=== PATIENT | female | born 1970 | race Caucasian/White ===

== ENCOUNTER → 2018-02-23 | Outpatient (CLI) | payer OTHER ==
[~2018-02-23] MED LIST: ASPI325 PO; BUPR100; BUPR150ER PO; OXYACE5T PO; TRIA80TC TOP
[2018-02-23 18:09] LABS: BASOPHILS ABSOLUTE AUTO 0.14 K/mm3 (0.00-0.23); BASOPHILS PERCENT AUTO 2 % (0-2); EOSINOPHILS ABSOLUTE AUTO 0.58 K/mm3 (0.00-0.68); EOSINOPHILS PERCENT AUTO 7 % (0-6); Hematocrit 35.7 % (33.0-51.0); Hemoglobin 11.6 g/dL (11.5-16.0); IMMATURE GRAN ABSOLUTE AUTO 0.02 K/mm3 (0.00-0.10); IMMATURE GRAN PERCENT AUTO 0 % (0-1); LYMPHOCYTES ABSOLUTE AUTO 2.24 K/mm3 (0.84-5.20); LYMPHOCYTES PERCENT AUTO 26 % (21-46); MONOCYTES ABSOLUTE AUTO 1.01 K/mm3 (0.16-1.47); MONOCYTES PERCENT AUTO 12 % (4-13); Mean Corpuscular HGB 30.1 pg (26.0-34.0); Mean Corpuscular HGB Conc 32.5 g/dL (31.5-36.5); Mean Corpuscular Volume 93 fL (80-100); NEUTROPHILS ABSOLUTE AUTO 4.51 K/mm3 (1.96-9.15); NEUTROPHILS PERCENT AUTO 53 % (41-73); Platelet Count 424 K/mm3 (150-400); RDW Standard Deviation 47.9 fL (35.1-46.3); Red Blood Cell Count 3.85 M/mm3 (3.80-5.20)
[2018-02-23 19:03] LABS: Alanine Aminotransfer (ALT/SGP 18 U/L (12-78); Albumin, Blood 3.5 g/dL (3.4-5.0); Albumin/Globulin Ratio 1.2 (0.8-1.8); Alk Phos 59 U/L (50-136); Anion Gap 7 mmol/L (6-16); Aspartate Aminotrans (AST/SGOT 17 U/L (12-37); Bilirubin, Total 0.2 mg/dL (0.1-1.0); Blood Urea Nitrogen 15 mg/dL (8-24); Bun/Creatinine Ratio 21.2 (12.0-20.0); CO2, Blood 27 mmol/L (21-32); Calcium, Blood 8.2 mg/dL (8.5-10.1); Chloride, Blood 105 mmol/L (98-108); Cholesterol 175 mg/dL (50-200); Creatinine, Blood 0.71 mg/dL (0.40-1.00); Free Thyroxine 0.96 ng/dL (0.70-1.60); Globulin, Blood 2.9 g/dL (2.2-4.0); Glomerular Filtration Rate >60 (60-); Glucose, Blood 86 mg/dL (70-99); HDL Cholesterol 58 mg/dL (>39); LDL/HDL RATIO 1.7; Low Density Lipoprotein Chol 98 mg/dL (0-110); Potassium, Blood 4.3 mmol/L (3.5-5.5); Sodium, Blood 139 mmol/L (136-145); Total Protein, Blood 6.4 g/dL (6.4-8.2); Triglycerides 96 mg/dL (30-160); Very Low Density Lipoprot Chol 19 mg/dL (6-32)
== END ==
LOC: LAB 11:07 → LAB SHORT 11:07
PROVIDERS: Nurse Practitioner Adult Health
DX: F32.9 Major depressive disorder, single episode, unspecified (principal); N92.6 Irregular menstruation, unspecified; N92.0 Excessive and frequent menstruation with regular cycle; Q89.01 Asplenia (congenital); F17.200 Nicotine dependence, unspecified, uncomplicated
CPT/HCPCS: 80053; 80061; 83001; 84439; 84443; 85025

== ENCOUNTER → 2020-03-08 | Outpatient (CLI) | payer OTHER ==
[2020-03-12 08:08] LABS: COTININE Negative ng/mL (Cutoff=300)
== END | disposition home or self-care (01) ==
LOC: OLS 17:07 → LAB SHORT 17:07
PROVIDERS: Orthopaedic Surgery
DX: Z01.812 Encounter for preprocedural laboratory examination (principal); M16.12 Unilateral primary osteoarthritis, left hip

== ENCOUNTER 2020-04-03 07:12 | Day surgery (SDC) | payer OTHER ==
[~2020-04-03] VITALS: Ht 167.6 cm; Wt 75.5 kg
[~2020-04-03 07:12] MED LIST changes: +Norco 5-325 Ta1 EACH PO; +TRIA15CR3 TOP
--- NOTE | 2020-04-03 11:34 | NUR ---
Surgical site prepped with 2% Chlorhexidine cloth wipe. History, Chart, Medications and Allergies reviewed before start of procedure.Lungs clear T/O to Auscultation. Patient confirms NPO status and agrees with scheduled surgery. Pre-Op teaching done. Pt verbalizes understanding. Patient reports completing Chlorhexadine shower X2 prior to admission to hospital.Patient States Post-Procedure ride home has been arranged.
--- NOTE | 2020-04-03 16:47 | NUR ---
SHIFT SUMMARY A/O X4, VSS. S/P L JENY, TOLERATING PO, VOIDING WELL, AMBULATES TO BATHROOM W/ FWW&[id number],1 PERSON STANDBY ASSIST. TCDB, IS EDU&ENC. UP TO CHAIR, POLAR PACK, SCDS, TEDS IN PLACE. PAIN MANAGED WITH 5MG OXY, TORADOL, TYLENOL PER EMAR. CALL LIGHT IN REACH. WILL REPORT TO ONCOMING NOC RN.
[2020-04-04 04:47] LABS: BASOPHILS ABSOLUTE AUTO 0.05 K/mm3 (0.00-0.23); BASOPHILS PERCENT AUTO 0 % (0-2); EOSINOPHILS ABSOLUTE AUTO 0.07 K/mm3 (0.00-0.68); EOSINOPHILS PERCENT AUTO 1 % (0-6); Hematocrit 32.2 % (33.0-51.0); Hemoglobin 10.3 g/dL (11.5-16.0); IMMATURE GRAN ABSOLUTE AUTO 0.05 K/mm3 (0.00-0.10); IMMATURE GRAN PERCENT AUTO 0 % (0-1); LYMPHOCYTES ABSOLUTE AUTO 2.34 K/mm3 (0.84-5.20); LYMPHOCYTES PERCENT AUTO 16 % (21-46); MONOCYTES PERCENT AUTO 12 % (4-13); Mean Corpuscular HGB 29.9 pg (26.0-34.0); Mean Corpuscular Volume 94 fL (80-100); Mean Platelet Volume 9.9 fL (9.1-12.4); NEUTROPHILS ABSOLUTE AUTO 10.39 K/mm3 (1.96-9.15); NEUTROPHILS PERCENT AUTO 71 % (41-73); Platelet Count 451 K/mm3 (150-400); RDW Coefficient Variation 12.6 % (11.7-14.2); RDW Standard Deviation 43.2 fL (35.1-46.3); Red Blood Cell Count 3.44 M/mm3 (3.80-5.20)
[2020-04-04 05:06] LABS: Anion Gap 2 mmol/L (6-16); Blood Urea Nitrogen 14 mg/dL (8-24); Bun/Creatinine Ratio 21.6 (12.0-20.0); CO2, Blood 31 mmol/L (21-32); Calcium, Blood 8.1 mg/dL (8.5-10.1); Chloride, Blood 106 mmol/L (98-108); Creatinine, Blood 0.65 mg/dL (0.40-1.00); Glomerular Filtration Rate >60 (60-); Glucose, Blood 107 mg/dL (70-99); Potassium, Blood 3.5 mmol/L (3.5-5.5); Sodium, Blood 139 mmol/L (136-145)
--- NOTE | 2020-04-04 05:43 | NUR ---
SHIFT SUMMARY: PATRICIA IS POD1 FOR A L TKA. SHE IS TOLERATING PO INTAKE WELL. SHE DID HAVE AN EPISODE OF NAUSEA YESTERDAY WHICH SHE ATTRIBUTES TO TAKING THE OXYCODONE ON AN EMPTY STOMACH. SHE TOLERATED A DOSE LAST NIGHT WITH A SNACK WITHOUT NAUSEA. HER PAIN DID INCREASE SIGNIFICANTLY FOR A SHORT TIME DURING THE NIGHT. SHE REPORTS THAT 1 MG OF DILAUDID HAS BEEN EFFECTIVE. SHE IS AMBULATING WITHOUT DIFFICULTY, ONE PERSON STANDBY ASSIST. VSS, HER BP IS ON THE LOW SIDE BUT SHE DENIES ANY DIZZINESS OR LIGHTHEADEDNESS. IV TO R AC PATENT. SHE IS URINATING WITHOUT DIFFICULTY. SHE IS ABLE TO MAKE HER NEEDS KNOWN. SHE IS LYING IN BED WITH HER CALL LIGHT IN REACH. WILL REPORT TO DAY SHIFT RN.
[2020-04-04] MEDS ORDERED: XARELTO20 MG PO (09:48)
[2020-04-04] MEDS ORDERED: Percocet 5-3251 EACH PO (09:48)
--- NOTE | 2020-04-04 11:29 | NUR ---
DISCHARGED PT DC'D. DC'D IV, CATHETER INTACT. REVIEWED DC INSTRUCTIONS W/PT; VERBALIZED UNDERSTANDING. LEFT UNIT IN WC W/POSSESSIONS, DC PAPERWORK AND POLAR PACK IN HAND TO RIDE AWAITING OUTSIDE.
== END 2020-04-04 11:30 | disposition home or self-care (01) ==
LOC: ORSCMMR 07:12 → ORD 08:30 → SURS 11:16 → ORSCMMR 04-04 11:30
PROVIDERS: Orthopaedic Surgery
PROC: 0SRB0JA Replacement of Left Hip Joint with Synthetic Substitute, Uncemented, Open Approach (ICD-10-PCS; principal; 2020-04-03 08:30)
PROC: 8E0Y0CZ Robotic Assisted Procedure of Lower Extremity, Open Approach (ICD-10-PCS; principal; 2020-04-03 08:30)
DX: M16.12 Unilateral primary osteoarthritis, left hip (principal); M87.059 Idiopathic aseptic necrosis of unspecified femur; Z01.818 Encounter for other preprocedural examination; F32.9 Major depressive disorder, single episode, unspecified; Z79.899 Other long term (current) drug therapy
CPT/HCPCS: 27130; S2900; 36415; 72170; 80048; 85025; 86850; 86900; 86901; 88300; 97110; 97162; 97530; C1776; J0171; J0690; J0735; J1170; J1885; J2405; J2795; J7120

== ENCOUNTER 2020-07-26 05:41 | Emergency (ER) | payer OTHER ==
[~2020-07-26] VITALS: Ht 167.6 cm; Wt 77.1 kg
[~2020-07-26 05:41] MED LIST changes: +Percocet 5-3251 EACH PO; +XARELTO20 MG PO
[2020-07-26] MEDS ORDERED: BUPROPION XL150 M1 PO (06:11)
[2020-07-26] MEDS ORDERED: BUPROPN HCL (06:11)
[2020-07-26 06:18] LABS: Hematocrit 33.9 % (33.0-51.0); Hemoglobin 11.2 g/dL (11.5-16.0); Mean Corpuscular HGB 29.4 pg (26.0-34.0); Mean Corpuscular Volume 89 fL (80-100); Mean Platelet Volume 9.9 fL (9.1-12.4); Platelet Count 513 K/mm3 (150-400); RDW Coefficient Variation 14.3 % (11.7-14.2); RDW Standard Deviation 46.4 fL (35.1-46.3); Red Blood Cell Count 3.81 M/mm3 (3.80-5.20); White Blood Cell Count 10.82 K/mm3 (4.00-11.30)
[2020-07-26 06:31] LABS: Alanine Aminotransfer (ALT/SGP 15 U/L (12-78); Albumin, Blood 3.6 g/dL (3.4-5.0); Albumin/Globulin Ratio 1.1 (0.8-1.8); Alk Phos 69 U/L (50-136); Anion Gap 4 mmol/L (6-16); Aspartate Aminotrans (AST/SGOT 13 U/L (12-37); Bilirubin, Total 0.2 mg/dL (0.1-1.0); Blood Urea Nitrogen 15 mg/dL (8-24); Bun/Creatinine Ratio 16.9 (12.0-20.0); CO2, Blood 28 mmol/L (21-32); Calcium, Blood 8.8 mg/dL (8.5-10.1); Chloride, Blood 108 mmol/L (98-108); Creatinine, Blood 0.89 mg/dL (0.40-1.00); Globulin, Blood 3.3 g/dL (2.2-4.0); Glomerular Filtration Rate >60 (60-); Glucose, Blood 88 mg/dL (70-99); Potassium, Blood 3.6 mmol/L (3.5-5.5); Sodium, Blood 140 mmol/L (136-145); Total Protein, Blood 6.9 g/dL (6.4-8.2)
[2020-07-26 07:16] LABS: BASOPHILS ABSOLUTE MAN 0.21 K/mm3 (0.00-0.23); BASOPHILS PERCENT MAN 2 % (0-2); EOSINOPHILS ABSOLUTE MAN 0.64 K/mm3 (0.00-0.68); EOSINOPHILS PERCENT MAN 6 % (0-6); LYMPHOCYTES ABSOLUTE MAN 5.08 K/mm3 (0.84-5.20); LYMPHOCYTES PERCENT MAN 47 % (21-46); MONOCYTES ABSOLUTE MAN 0.86 K/mm3 (0.16-1.47); MONOCYTES PERCENT MAN 8 % (4-13); SEG NEUTROPHILS PERCENT MAN 37 % (41-73); TOTAL CELLS COUNTED 100
[2020-07-26] MEDS ORDERED: PROVERA10 MG PO (09:42)
== END 2020-07-26 10:00 | disposition home or self-care (01) ==
LOC: ER 05:41
PROVIDERS: Emergency Medicine
DX: N93.9 Abnormal uterine and vaginal bleeding, unspecified (principal); N85.9 Noninflammatory disorder of uterus, unspecified; Z88.8 Allergy status to other drugs, medicaments and biological substances; Z91.09 Other allergy status, other than to drugs and biological substances; Z91.040 Latex allergy status; Z88.1 Allergy status to other antibiotic agents; Z79.899 Other long term (current) drug therapy; Z87.891 Personal history of nicotine dependence
CPT/HCPCS: 76856; 80053; 84484; 84703; 85025; 93005; 93010; 99284-25

== ENCOUNTER 2022-03-03 10:46 | Day surgery (SDC) | payer OTHER ==
[~2022-03-03] VITALS: Ht 167.6 cm; Wt 80.6 kg
[~2022-03-03 10:46] MED LIST changes: +BUPROPION XL150 M1 PO; +BUPROPN HCL; +PROVERA10 MG PO
--- NOTE | 2022-03-03 14:08 | NUR ---
03/03/22 1408 PIO LOPEZ INFORMED BY STAFF THAT PT WAS INFORMED THAT HER DTR HAS CANCER JUST PRIOR TO SURGERY.
--- NOTE | 2022-03-03 14:34 | NUR ---
03/03/22 1434 PIO LOPEZ PAIN 03/11. FENTANYL 25MCG IV PUSH. PT EATING CRACKERS AND DRINKING WATER W/O NAUSEA
== END 2022-03-03 15:10 | disposition home or self-care (01) ==
LOC: ORSCSDS 10:46
PROVIDERS: Podiatrist Foot & Ankle Surgery
PROC: 0QSQ04Z Reposition Right Toe Phalanx with Internal Fixation Device, Open Approach (ICD-10-PCS; principal; 2022-03-03 11:45)
PROC: 0SGH04Z Fusion of Right Tarsal Joint with Internal Fixation Device, Open Approach (ICD-10-PCS; principal; 2022-03-03 11:45)
DX: M20.11 Hallux valgus (acquired), right foot (principal); Z87.891 Personal history of nicotine dependence; F41.8 Other specified anxiety disorders; Z86.16 Personal history of COVID-19; Z79.899 Other long term (current) drug therapy
CPT/HCPCS: A9270; C1713; C1776; J0171; J0690; J1100; J1885; J2405; J2704; J3010; J7120